=== PATIENT | female | born 1960 | race Two or more races ===

== ENCOUNTER 2019-08-07 10:30 | Emergency (ER) | payer SELFPAY ==
[~2019-08-07] VITALS: Ht 154.9 cm; Wt 81.6 kg
[2019-08-07 11:08] LABS: Basophils # (auto) 0.1 uL; Basophils % (auto) 0.7 % (0.0-2.0); Eosinophils # (auto) 0.2 uL; Eosinophils % (auto) 2.1 % (0.0-7.0); Hematocrit 38.1 % (36.0-46.0); Hemoglobin 12.7 g/dL (12.2-16.2); Lymphocytes # (auto) 2.9 uL; Lymphocytes % (auto) 38.2 % (10.0-50.0); Mean Corpuscular Hemoglobin 27.8 pg (28.0-32.0); Mean Corpuscular Hgb Conc. 33.3 g/dL (32.0-36.0); Mean Corpuscular Volume 83.5 fL (80.0-100.0); Monocytes # (auto) 0.3 uL; Monocytes % (auto) 3.6 % (0.0-12.0); Neutrophils # (auto) 4.2 uL; Neutrophils % (auto) 55.4 % (37.0-80.0); Platelet Count (auto) 300 10^3/uL (140-450); Red Blood Cells 4.57 10^6/uL (4.0-5.20); Red Cell Distribution Width 13.4 % (11.8-14.3); White Blood Cell 7.6 10^3/uL (4.4-10.8)
[2019-08-07 11:48] LABS: INR 0.99 (0.9-1.15); Partial Thromboplastin Time 28.9 sec (23.64-32.05)
[2019-08-07 13:37] VITALS: BP 118/80
== END 2019-08-07 13:43 | disposition home or self-care (01) ==
LOC: ER 10:30
DX: R04.0 Epistaxis (principal); I16.0 Hypertensive urgency; E78.5 Hyperlipidemia, unspecified
CPT/HCPCS: 36415; 85025; 85610; 85730